=== PATIENT | male | born 1990 | race African-American/Black ===

== ENCOUNTER → 2024-03-28 | Outpatient (REF) ==
[~2024-03-28] MED LIST: BENZ200C70 PO; MALA250T PO; ONDA-282 PO
== END ==
LOC: M PLAIMG 13:21
PROVIDERS: ATTEND Internal Medicine
DX: R52 Pain, unspecified (principal)

== ENCOUNTER → 2024-12-20 | Outpatient (CLI) | payer OTHER | LOC: M RAD 07:53 | PROVIDERS: ATTEND Nurse Practitioner Family | DX: R94.5 Abnormal results of liver function studies (principal) ==